=== PATIENT | female | born 1955 | race Caucasian/White ===

== ENCOUNTER 2016-09-13 06:00 | Emergency (ER) | payer MEDICARE, OTHER | END 2016-09-13 08:04 | disposition home or self-care (01) | LOC: ER 06:00 | DX: J06.9 Acute upper respiratory infection, unspecified (principal); R42 Dizziness and giddiness; S70.00XA Contusion of unspecified hip, initial encounter; W06.XXXA Fall from bed, initial encounter; M54.5 Low back pain; Z88.5 Allergy status to narcotic agent; Z79.899 Other long term (current) drug therapy | CPT/HCPCS: 73502; 87400; 96372; 99283-25; 99284 ==